=== PATIENT | female | born 1950 | race Caucasian/White ===

== ENCOUNTER 2019-01-04 14:05 | Emergency (ER) | payer OTHER ==
[2019-01-04 14:30] VITALS: BP 160/108; PULSE 100; TEMP 97.6; BMI 28.9
--- NOTE | 2019-01-04 14:40 | PDOC ---
Attending Attestation - Resident Resident Name: AdonisWayne - ED Attending Attestation I have performed the following: I have examined & evaluated the patient, The case was reviewed & discussed with the resident, I agree w/resident's findings & plan, Exceptions are as noted - HPI HPI: 01/04/19 14:39 68y F hx of htn, hl, hypothyroidism presents sp fall, was walking down a step ont a raised mat and inverted her R ankle and everted her L ankle and tumbled down without any loc, neck pain, headache, back pain, knee pain, hip pain, UE pain. no cp, sob, palpitations, lightheadedness, syncope. on exam pt is mild ttp to deltoid ligment/distal tip of R malleolus and diffus mile ttp L malleolus. normal rom of hip/knee without limitations b/l normal rom of upper extermities no ttp to neck/back/head xray neg for fx suspect strain almita wrap placed, RICE therapy supportive care return precautions were dsicussed I discussed the physical exam findings, ancillary test results and final diagnoses with the patient. I answered all of the patient's questions. The patient was satisfied with the care received and felt comfortable with the discharge plan and treatment plan. The patient will call their primary care physician within 24 hours to arrange follow-up and will return to the Emergency Department with any new, persistent or worsening symptoms. - Physicial Exam PE: 01/04/19 15:40 see above - Medical Decision Making 01/04/19 15:40 see alvaro
--- NOTE | 2019-01-04 14:42 | PDOC ---
History of Present Illness - General Chief Complaint: Injury Stated Complaint: FELL Time Seen by Provider: 01/04/19 14:16 History Source: Patient Exam Limitations: No Limitations - History of Present Illness Initial Comments: 01/04/19 14:37 68 yo female pmh HTN, HLD and hypothyroidsm presents to ED after fall. 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 Pt admits to inversion mech of right ankle and eversion mech on left ankle with pain and swelling to bilateral ankles. Denies hitting head, DOAN, changes in vision, N/V, weakness or sensory changes on 1 side of her body. Denies pain in right arm/ wrist, knees bilaterally. Pt able to ambulate after famll and walked in ER without antalgic gait. Past History - Past Medical History Allergies/Adverse Reactions: Allergies Allergy/AdvReac Type Severity Reaction Status Date / Time No Known Allergies Allergy Verified 01/04/19 14:18 Home Medications: Ambulatory Orders Atorvastatin Ca [Lipitor] 5 mg PO DAILY 01/04/19 Levothyroxine [Synthroid -] 100 mcg PO DAILY 01/04/19 Liothyronine Sodium [Cytomel -] 25 mcg PO DAILY 01/04/19 COPD: No Hypercholesterolemia: Yes Seizures: Yes Thyroid Disease: Yes - Immunization History Td Vaccination: Yes - Suicide/Smoking/Psychosocial Hx Smoking Status: No Smoking History: Never smoked Number of Cigarettes Smoked Daily: 0 Cigars Per Day: 0 Hx Alcohol Use: No Drug/Substance Use Hx: No Review of Systems - Review of Systems Constitutional: No: Chills, Fever HEENTM: No: Blurred Vision, Double Vision Respiratory: No: Shortness of Breath Cardiac (ROS): No: Chest Pain, Syncope ABD/GI: No: Constipated, Diarrhea, Nausea, Vomiting : No: Burning, Dysuria, Discharge, Flank Pain, Hematuria Musculoskeletal: Yes: Other (bilateral ankle pain). No: Back Pain, Neck Pain Neurological: No: Headache, Numbness, Paresthesia, Weakness *Physical Exam - Vital Signs Last Vital Signs Temp Pulse Resp BP Pulse Ox 97.6 F 100 H 16 160/108 H 100 01/04/19 14:06 01/04/19 14:06 01/04/19 14:06 01/04/19 14:06 01/04/19 14:06 - Physical Exam General Appearance: Yes: Nourished, Appropriately Dressed. No: Apparent Distress HEENT: positive: EOMI, IMAN, Normal Voice, Hearing Grossly Normal. negative: Lesions Neck: positive: Supple Respiratory/Chest: positive: Lungs Clear, Normal Breath Sounds. negative: Accessory Muscle Use, Crackles, Rales, Stridor, Wheezing Cardiovascular: positive: Regular Rhythm, Regular Rate, S1, S2. negative: Edema , JVD, Murmur Vascular Pulses: Dorsalis-Pedis (R): 4+, Doralis-Pedis (L): 4+ Gastrointestinal/Abdominal: positive: Flat, Soft. negative: Pulsatile Mass, Distended, Guarding, Rebound, Tenderness Musculoskeletal: negative: CVA Tenderness Extremity: positive: Normal Capillary Refill, Normal Range of Motion, Swelling ( bilateral ankle), Other (tenderness to lateral maleoli. Pt able to ambulate ). negative: Pedal Edema, Calf Tenderness, Erythema Integumentary: positive: Normal Color, Dry, Warm, Other (no s/s of injury to rest of body) Neurologic: positive: lining sewer II-XII NML intact, Fully Oriented, Alert, Normal Mood/ Affect, Normal Response, Motor Strength 5/5. negative: Facial Droop, Confused, Disoriented ED Treatment Course - RADIOLOGY Radiology Studies Ordered: Category Date Time Status ANKLE-LEFT [RAD] Stat Radiology 01/04/19 14:36 Ordered ANKLE-RIGHT [RAD] Stat Radiology 01/04/19 14:36 Ordered *DC/Admit/Observation/Transfer Diagnosis at time of Disposition: Ankle sprain Qualifiers: Encounter type: initial encounter - Discharge Dispostion Disposition: HOME Condition at time of disposition: Good Decision to Admit order: No - Referrals Referrals: Chester Campuzano [Primary Care Provider] - Douglas Keane DO [Staff Physician] - - Patient Instructions Printed Discharge Instructions: DI for Ankle Sprain Additional Instructions: Please see your Primary Doctor within the next 48 hours. Make an appointment to see the Orthopedic Doctor referred to you if you continue to have pain or difficulty walking past 4-5 days despite adequate treatment. Rest, ice, compress and elevated both ankles along with use of Motrin over the counter for pain and reduction of swelling. Return to the ER for new or concerning symptoms including but not limited to: difficulty walking or weakness/progressive pain into the lower feet. Thank you - Post Discharge Activity
[2019-01-04] MEDS ORDERED: IBUPROFEN 600 MG TABLET (FP) PO ONE ×2 (15:23→15:26)
== END 2019-01-04 15:34 | disposition home or self-care (01) ==
LOC: FER 14:05
DX: W01.0XXA Fall on same level from slipping, tripping and stumbling without subsequent striking against object, initial encounter (principal); Y93.89 Activity, other specified; Y92.89 Other specified places as the place of occurrence of the external cause; I10 Essential (primary) hypertension; E78.5 Hyperlipidemia, unspecified; E03.9 Hypothyroidism, unspecified; S93.409A Sprain of unspecified ligament of unspecified ankle, initial encounter
CPT/HCPCS: 73610-TC-LT-FY; 73610-TC-RT-FY; 99282-25